=== PATIENT | female | born 1975 | race Caucasian/White ===

== ENCOUNTER 2021-07-19 08:48 | Outpatient (CLI) | payer OTHER, SELFPAY ==
--- NOTE | ~2021-07-19 | NM_ITS ---
EXAMINATION: NM parathyroid imaging w spect DATE: 07/19/2021 13:57 INDICATION: Hypercalcemia TECHNIQUE: 19.2 mCi Tc99m sestamibi (Cardiolite) was administered by intravenous route. Anterior imag es of the neck were obtained at 10 minutes and 2 hours. Additional two-hour delayed SPECT images were also obtained in all 3 planes. COMPARISON: None. FINDINGS/IMPRESSION: There is no focus of persistent activity in the area of the thyroid or mediastinum to suggest parathy roid adenoma. Reviewed, dictated and finalized at location A. CLEANING SUPERVISOR
== END 2021-07-19 08:49 | disposition home or self-care (01) ==
PROVIDERS: PCP Family Medicine; Visit Provider Family Medicine
DX: E83.52 Hypercalcemia (principal)
CPT/HCPCS: 78071; A9500

== ENCOUNTER 2024-01-06 11:18 | Outpatient (CLI) | payer OTHER, SELFPAY ==
--- NOTE | ~2024-01-06 | XR_ITS ---
AP abdomen lateral views of the left hip Clinical history: Pain Findings: No acute fracture or dislocation is seen. Osseous alignment is anatomic. The left hip joint is preserved. Soft tissues are unremarkable. Impression: No significant abnormality is seen. Reviewed, dictated and finalized at location . Impression: No significant abnormality is seen.
--- NOTE | ~2024-01-06 | XR_ITS ---
Left Knee Technique: AP and lateral views were obtained. Clinical History: Pain Findings: No fracture or dislocation is seen. Osseous alignment is anatomic. Joint spaces are preserv ed without degenerative or erosive change. Soft tissues are unremarkable. No joint effusion is seen. Impression: Unremarkable left knee radiographs. Reviewed, dictated and finalized at location . Impression: Unremarkable left knee radiographs.
== END 2024-01-06 11:19 ==
PROVIDERS: PCP Family Medicine; Visit Provider Family Medicine
DX: M25.552 Pain in left hip (principal); M25.562 Pain in left knee
CPT/HCPCS: 73502; 73560

== ENCOUNTER 2025-02-22 10:05 | Outpatient (CLI) | payer OTHER, SELFPAY ==
--- NOTE | ~2025-02-22 | MR_ITS ---
EXAMINATION: MR breast BI wo/w con INDICATION: Extremely dense tissue on mammography. Family history of breast cancer. Patient prior mammogram obtained in March 2024 and ultrasound of the breast both obtained at outside institutions are not available at this time for review. TECHNIQUE: Axial VIBRANT pre and dynamic post contrast, Sagittal VIBRANT post contrast, Axial T2 STIR ASSET COMPARISON: None available CONTRAST: Multihance, 13 cc BREAST COMPOSITION: Extreme fibroglandular tissue FINDINGS: RIGHT BREAST: There is mild background parenchymal enhancement. There is a 0.7 cm linear enhancing mass seen in the slightly superior medial at anterior third which demonstrate low intensity on the T2 weighted image and persistent kinetics. No pathologically enlarged axillary or internal mammary lymph nodes are identified. LEFT BREAST: There is mild background parenchymal enhancement. No abnormal enhancement is present after contrast administration. No pathologically enlarged axillary or internal mammary lymph nodes are identified. IMPRESSION: 1. Right breast 0.7 cm enhancing linear mass at slightly superior medial, 2:00 location. Further evaluation with Second Look ultrasound is advised. 2. No MRI evidence of malignancy within the left breast. 3. The chest wall and axillary portion of the examination unremarkable. RECOMMENDATION: Second Look ultrasound right breast. BI-RADS Category 0: Incomplete: Needs additional imaging evaluation. Reviewed, dictated and finalized at location B.
--- OUTSIDE RECORDS SUMMARY | 2025-02-22 10:36 | XMS_ITS | Clinical Summary ---
Author Organization [facility] Address [address] [place] [address] Care Team Providers Care Heel Sander Rubber Name Role Phone Bhupinder Ferreira MD Unavailable [phone] Ophelia Roman DPT Unavailable [phone] Ale Flores MD Primary Care Provider [phone] Allergies No known active allergies Medications cholecalciferol (Vitamin D3) 2000 unit tablet Active Active Problems No known active problems Encounters Date Type Department Care Team Description 12/22/2024 Telephone [facility] [address] [facility] [address] [place] [address] Ale Flores MD from Last 3 Months Surgical History Surgery Date Site/Laterality Comments SECTION Family History Medical History Relation Name Comments Diabetes Father Gianluca Cancer Maternal Grandfather Herb Breast cancer Mother Shameka Hypertension Mother Shameka Heart attack Paternal Grandfather OCricket Mann Relation Name Status Comments Father Gianluca Maternal Grandfather Herb Mother Shameka Paternal Grandfather Amrik Mann Social History Tobacco Use Types Packs/Day Years Used Date Smoking Tobacco: Never Smokeless Tobacco: Never Tobacco Cessation:Counseling Given: Not Answered Comments No Sex and Gender Information Value Date Recorded Sex Assigned at Not on file Legal Sex Female 8:53 PM PIPE OR STEAM FITTER FURNACE INSTALLER Gender Identity Not on file Sexual Orientation Not on file Obstetrics History Para Term AB IAB SAB Ectopic Multiple Livin g Live Births 2 2 2 2 2 Date Outcome GA Total Labor Labor/2nd/3rd Weight Sex Type Anes PTL Sera A1 A5 Name Clin 2008 Term M C-Secti on Livin g Johnathan 2012 Term F Vaginal Mirian gastelum Last Filed Vital Signs Vital Sign Reading Time Taken Comments Blood Pressure 98/78 11/08/2024 9:17 AM CDT Pulse 65 09/14/2024 6:11 PM CDT Temperature 36.8 C (98.3 F) 02/26/2023 6:08 PM CDT Respiratory Rate 18 09/14/2024 6:11 PM CDT Oxygen Saturation 99% 09/14/2024 6:11 PM CDT Inhaled Oxygen Concentration - - Weight 66.7 kg (147 lb) 11/08/2024 9:17 AM CDT Height 177.8 cm (5' 10) 11/08/2024 9:17 AM CDT Body Mass Index 21.09 11/08/2024 9:17 AM CDT Plan of Treatment Health Maintenance Due Date Last Done Comments Cervical Cancer Screening 1977 Colon Cancer Screening-Colonoscopy 1977 Depression Screening 1977 Hepatitis C Screening 1977 DTaP/Tdap/Td Vaccine (1 - Tdap) 1988 Hepatitis B Screening 1995 Influenza Vaccine (#1) 2025 04/20/2020 Breast Cancer Screening-Mammogram 05/20/2025 05/20/2024, 04/15/2023, 03/07/2022, Additional history exists Regular Well Visit/Exam 18-64 11/08/2025 11/08/2024 Pneumococcal vaccine <65 Aged Out No longer eligible based on patient's age to complete this topic Procedures Procedure Name Priority Date/Time Associated Diagnosis Comments SCREENING MAMMOGRAM BILATERAL W BHARATH Schedule Routine, Read Routine (OP Routine) 05/20/2024 4:10 PM PIPE OR STEAM FITTER FURNACE INSTALLER Screening mammogram, encounter for from Last 3 Months or Most Recently Relevant to Health Maintenance Results * Screening Mammogram Bilateral W Bharath (05/20/2024 4:10 PM PIPE OR STEAM FITTER FURNACE INSTALLER) Anatomical Region Laterality Modality Breast Bilateral Mammography Narrative 05/23/2024 11:39 AM PIPE OR STEAM FITTER FURNACE INSTALLER Mammogram Technique: Bilateral Digital Breast Tomosynthesis, Bilateral C-view 2D Screening mammogram. Views obtained: bilateral craniocaudal and bilateral mediolateral oblique. Computer Aided Detection was performed. Mammogram Findings: The present examination has been compared to prior imaging studies performed at [place], [place] on 12/12/2020, 03/07/2022 and 04/15/2023. The breasts are extremely dense, which lowers the sensitivity of mammography. There is no suspicious abnormality in either breast. Impression: There is no mammographic evidence of malignancy. Annual screening mammography is recommended. Consider breast MRI for supplemental screening given the patient's extremely dense breast tissue. OVERALL FINAL ASSESSMENT: BI-RADS CATEGORY 1: Negative. Procedure Note Lizzette Irby MD - 05/23/2024 Mammogram Technique: Bilateral Digital Breast Tomosynthesis, Bilateral C-view 2D Screening mammogram. Views obtained: bilateral craniocaudal and bilateral mediolateral oblique. Computer Aided Detection was performed. Mammogram Findings: The present examination has been compared to prior imaging studies performed at [facility] [place] [facility], [place], [place] on 12/12/2020, 03/07/2022 and 04/15/2023. The breasts are extremely dense, which lowers the sensitivity of mammography. There is no suspicious abnormality in either breast. Impression: There is no mammographic evidence of malignancy. Annual screening mammography is recommended. Consider breast MRI for supplemental screening given the patient's extremely dense breasttissue. OVERALL FINAL ASSESSMENT: BI-RADS CATEGORY 1: Negative. us Self Screening Mammogram IMG MAMMO PROCEDURES Fi nal Result from Last 3 Months or Most Recently Relevant to Health Maintenance Insurance [facility] CHOICE PLUS CIG CHOICE PLUS CHOICE PLUS Care Teams Heel Sander Rubber Relationship Specialty Start Date End Date Ale Flores MD [address] [facility] [address] [place], [place] [id number] PCP - General Obstetrics and Gynecology 12/05/20 Bhupinder Ferreira MD [address] [facility] [address] [place] [address] Referring Physician Family Medicine 11/19/17 Ophelia Roman DPT [address] [facility] [address] [place], [place] [id number] Physical Therapist Physical Therapy 11/30/17
--- OUTSIDE RECORDS SUMMARY | 2025-02-22 10:36 | XMS_ITS | Clinical Summary ---
Author Organization [facility] Address [address] [address] Phone Care Team Providers Care Centrifugal Chiller Technician Name Role Phone Sofy Patel APRN, CNP Primary Care Provid er Allergies No known active allergies Medications No known medications Active Problems No known active problems Immunizations Immunization Administration Dates Next Due Influenza Vaccine, Quadrivalent, PF 04/20/2020 Typhoid, ViCPs 12/23/2021 Family History Medical History Relation Name Comments Diabetes Father Breast Cancer Mother Cancer Mother High Cholesterol Mother Hypertension Mother Relation Name Status Comments Father Alive Mother Alive Social History Tobacco Use Types Packs/Day Years Used Date Smoking Tobacco: Never Smokeless Tobacco: Never Tobacco Cessation:Counseling Given: Yes Alcohol Use Standard Drinks/Week Comments Yes 0 (1 standard drink = 0.6 oz pur e alcohol) 1-2 drinks a week. PHQ-2 Answer Date Recorded Total Score - Questions 1-9 0 10/28 Sexually Active Control Partners Comments Yes Male Comments Unknown Sex and Gender Information Value Date Recorded Sex Assigned at Not on file Legal Sex Female 7:57 AM ER REGISTRAR Gender Identity Not on file Sexual Orientation Not on file Last Filed Vital Signs Vital Sign Reading Time Taken Comments Blood Pressure 112/62 12/27/2021 7:50 AM CDT Pulse 71 12/27/2021 7:50 AM CDT Temperature 35.7 C (96.2 F) 12/27/2021 7:50 AM CDT Respiratory Rate 12 12/27/2021 7:50 AM CDT Oxygen Saturation 98% 12/27/2021 7:50 AM CDT Inhaled Oxygen Concentration - - Weight 65 kg (143 lb 6.4 oz) 12/27/2021 7:50 AM CDT Height 177.8 cm (5' 10) 12/27/2021 7:50 AM CDT Body Mass Index 20.58 12/27/2021 7:50 AM CDT Plan of Treatment Health Maintenance Due Date Last Done Comments Hepatitis C Virus (HCV) Screening 1977 TdaP Immunization 1977 Hepatitis B Immunization (1 of 3 - 19+ 3-dose series) 1996 Mammogram 11/30/2021 11/30/2020, 09/2020, 08/09/2019, Additional history exists Cologuard 2022 Colonoscopy 2022 Colorectal Cancer Screening 2022 Immunochemical Fecal Occult Blood 2022 Pap Smear 08/09/2022 08/09/2019, 07/30, 04/27/2017, Additional history exists SARS-COV-2 Immunization ( season) 2024 05/24/2021, 10/23/2020, 10/02/2020 Cervical Cancer Screening (CCS) 08/09/2024 HPV/Cotest 08/09/2024 08/09/2019, 03/31, 11/27/2014, Additional history exists Influenza Immunization (#1) 2025 04/20/2020 Respiratory Syncytial Virus (RSV) Immunization (Adult) (1 - 1-dose 75+ series) 2052 Discussion re Starting/Frequency of Mammograms Completed 11/15/2021, 12/12/2020, 11/30/2020, Additional history exists Human Papillomavirus (HPV) Immunization Aged Out No longer eligible based on patient's age to complete this topic Meningococcal Immunization (ACWY) Aged Out No longer eligible based on patient's age to complete this topic Pneumococcal Immunization Combined Aged Out No longer eligible based on patient's age to complete this topic Rotavirus Immunization Aged Out No lo nger eligible based on patient's age to complete this topic Procedures Procedure Name Priority Date/Time Associated Diagnosis Comments MAMMOGRAM UNILATERAL GENERIC 12/12/2020 12:00 AM CDT MAMMOGRAM BILATERAL GENERIC 11/30/2020 12:00 AM CDT HUMAN PAPILLOMA VIRUS (HPV) 08/09/2019 12:00 AM ER REGISTRAR PATHOLOGY CYTOLOGY AXLE TURNER 0 12:00 AM ER REGISTRAR from Last 3 Months or Most Recently Relevant to Health Maintenance Results * MAMMOGRAM UNILATERAL MISCELLANEOUS (12/12/2020 12:00 AM CDT) 12/12/2020 us Not On File Provider IMG MAMMO ORDERABLES Final Result Performing Organization Address [facility] Co de Phone Number SCAN * MAMMOGRAM BILATERAL MISCELLANEOUS (11/30/2020 12:00 AM CDT) 11/30/2020 us Not On File Provider IMG MAMMO ORDERABLES Final Result Performing Organization Address [facility] de Phone Number SCAN * PATHOLOGY CYTOLOGY AXLE TURNER (08/09/2019 12:00 AM ER REGISTRAR) 08/09/2019 us Not On File Provider PATHOLOGY/CYTOLOGY ORDERABL ES Final Result Performing Organization Address [facility] de Phone Number AP NON-INTERFACED REFERENCE LABORATORIES * HUMAN PAPILLOMA VIRUS (HPV) (08/09/2019 12:00 AM ER REGISTRAR) 08/09/2019 us Not On File Provider LAB SEND OUTS Final Resul t Performing Organization Address [facility] de Phone Number AP NON-INTERFACED REFERENCE LABORATORIES from Last 3 Months or Most Recently Relevant to Health Maintenance Insurance [employer] Care Teams Centrifugal Chiller Technician Relationship Specialty Start Date End Date Sofy Patel APRN, CARMINE [address] [address] PCP - General Advanced Practice Nurse 11/15/21
== END 2025-02-22 10:06 | disposition home or self-care (01) ==
PROVIDERS: PCP Family Medicine
DX: R92.8 Other abnormal and inconclusive findings on diagnostic imaging of breast (principal); Z80.3 Family history of malignant neoplasm of breast
CPT/HCPCS: 77049; A9577; C8908

== ENCOUNTER 2025-03-02 09:01 | Outpatient (CLI) | payer OTHER, SELFPAY ==
--- NOTE | ~2025-03-02 | US_ITS ---
Clinical history:Inconclusive breast MRI of the right breast. Right breast 0.7 cm enhancing linear mass at slightly superior medial, 2:00 location. A second look breast ultrasound was recommended. EXAM:Ultrasound breast right limited TECHNIQUE:Multiple static grayscale images were obtained of the right breast at the 2:00 position in the right retroareolar region. Comparisons:Breast MRI 02/22/2025 FINDINGS: No cystic or solid mass or focal fluid collection is identified. IMPRESSION: 1. No sonographic abnormality in the area of concern in the right breast at the 2:00 position. A diagnostic right breast mammogram is recommended. BI-RADS [id number] additional imaging evaluation. Reviewed, dictated and finalized at location Q. IMPRESSION: 1. No sonographic abnormality in the area of concern in the right breast at the 2:00 position. A diagnostic right breast mammogram is recommended. BI-RADS [id number] additional imaging evaluation.
--- OUTSIDE RECORDS SUMMARY | 2025-03-02 09:17 | XMS_ITS | Clinical Summary ---
Author Organization [facility] Address [address] [place] [id number] Care Team Providers Care Wireless Watcher Name Role Phone Unavailable Primary Care Provider Unavailabl e Social History Tobacco Use Types Packs/Day Years Used Date Smoking Tobacco: Never Assessed Comments Unknown Sex and Gender Information Value Date Recorded Sex Assigned at Not on file Legal Sex Female 8:28 PM CDT Gender Identity Not on file Sexual Orientation Not on file Last Filed Vital Signs Vital Sign Reading Time Taken Comments Blood Pressure 118/62 07/02/2016 9:05 AM MANAGER PRINT Pulse 67 07/02/2016 9:05 AM MANAGER PRINT Temperature - - Respiratory Rate - - Oxygen Saturation - - Inhaled Oxygen Concentration - - Weight 69.5 kg (153 lb 2.1 oz) 07/02/2016 9:05 A M MANAGER PRINT Height 177.8 cm (5' 10) 07/02/2016 9:05 AM MANAGER PRINT Body Mass Index 21.97 07/02/2016 9:05 AM MANAGER PRINT Plan of Treatment Health Maintenance Due Date Last Done Comments Cervical Cancer Screening Pa p Smear (Age 30 to 64) Every 3 Years 1977 Colorectal Cancer Screening Colonoscopy (10 Years) 1977 Annual Physical 1980 Hepatitis C 1995 DTaP, Tdap and Td Vaccines ( 1 - Tdap) 1996 Hepatitis B Vaccines (1 of 3 - 19+ 3-dose series) 1996 Cervical Cancer Screening Pa p with HPV Testing (Age 30 to 64) Every 5 Years 2007 Cervical Cancer Screening with HPV 2007 Mammogram Screening 2017 COVID-19 Vaccine (2023-2 5 season) 2025 Meningococcal B Vaccine Aged Out No l onger eligible based on patient's age to complete this topic Meningococcal Vaccine Aged Out No shiva mushtaq eligible based on patient's age to complete this topic Pneumococcal Vaccine: Pediat rics (0 to 5 Years) and At-Risk Patients (6 to 49 Years) Aged Out No longer eligible b ased on patient's age to complete this topic RSV Immunizations Under 20 Months Aged Out No longer eligible based on patient's age to complete this topic
--- OUTSIDE RECORDS SUMMARY | 2025-03-02 09:17 | XMS_ITS | Clinical Summary ---
Author Organization [facility] Address [address] [facility] [place] [address] Care Team Providers Care Well Point Pumping Supervisor Name Role Phone Red Elias Laura DE JESUS-EDITOR MANAGING DIRECTOR Primary Care Provider [phone] Source Comments [facility],non-owned Affiliates and Associated Physician Practices is amultiple site organization consisting of ambulatory clinics and hospital sitesin [place], [place], [place] and [place]. This disclosure is being madepursuant to the Care Everywhere program and may not contain all information available regarding this patient. Last updated 18.[employer] [facility]Exactly [facility] Allergies No known active allergies Medications * Be aware that medications may not be up to date on this document. Alwaysverify current medications with the patient. benzonatate (TESSALON) 200 MG capsule Take 1 Cap by mouth 3 times daily as needed for Cough 30 Cap 06/05/2016 Active Family History Relation Name Status Comments Father Alive Mother Alive Social History Tobacco Use Types Packs/Day Years Used Date Smoking Tobacco: Never Comments Unknown Sex and Gender Information Value Date Recorded Sex Assigned at Not on file Legal Sex Female 10:13 AM DYE EXPERT Gender Identity Not on file Sexual Orientation Not on file Last Filed Vital Signs Vital Sign Reading Time Taken Comments Blood Pressure 98/60 06/05/2016 4:14 PM DYE EXPERT Pulse 86 06/05/2016 4:14 PM DYE EXPERT Temperature 37.7 C (99.9 F) 06/05/2016 4:14 PM DYE EXPERT Respiratory Rate 16 06/05/2016 4:14 PM DYE EXPERT Oxygen Saturation 96% 06/05/2016 4:14 PM DYE EXPERT Inhaled Oxygen Concentration - - Weight 68 kg (150 lb) 06/05/2016 4:14 PM DYE EXPERT Height 177.8 cm (5' 10) 06/05/2016 4:14 PM DYE EXPERT Body Mass Index 21.52 06/05/2016 4:14 PM DYE EXPERT Plan of Treatment Health Maintenance Due Date Last Done Comments COLOGUARD (AGES 45-75) - COL ON CA SCREENING 1977 COLON MONITORING 1977 COLONOSCOPY - COLON CA SCREENING 1977 CT COLONOGRAPHY - COLON CA SCREENING 1977 Colorectal Cancer Screening 1977 FIT - COLON CA SCREENING 1977 FLEX SIG - COLON CA SCREENING 1977 LIPID TESTING 1977 MAMMOGRAM 1977 HIV SCREENING 1992 HEPATITIS C SCREENING 03/15/1995 DTAP/TDAP/TD VACCINES (1 - Tdap) 1996 HEPATITIS B VACCINE (1 of 3 - 19+ 3-dose series) 1996 PAP SMEAR 1998 DEPRESSION SCREENING 06/29/2024 COVID-19 VACCINE (1 - 2023-2 5 season) 2025 INFLUENZA VACCINE (#1) 2025 ZOSTER VACCINE (1 of 2) 2027 HIB VACCINE Aged Out No longer eligi ble based on patient's age to complete this topic HPV VACCINE Aged Out No longer eligi ble based on patient's age to complete this topic MENINGOCOCCAL (Group B) VACC INE SHARED DECISION-MAKING Aged Out No longer eligibl e based on patient's age to complete this topic MENINGOCOCCAL GROUPS A/C/Y/W VACCINE Aged Out No longer eligible b ased on patient's age to complete this topic PNEUMOCOCCAL VACCINE Aged Out No long er eligible based on patient's age to complete this topic Insurance [facility] Care Teams Well Point Pumping Supervisor Relationship Specialty Start Date End Date Red Elias APRN-EDITOR MANAGING DIRECTOR PCP - General Nurse Practitioner 06/05/16
--- OUTSIDE RECORDS SUMMARY | 2025-03-02 09:17 | XMS_ITS | Encounter Summary ---
Author Organization [facility] Address [facility] [place] [address] Care Team Providers Care Retort Fireman Name Role Phone Curt Red Sanchez APRN-TRAUMA COORDINATOR Primary Care Provider [phone] Reason for Visit * Reason Onset Date Comments Appointment 08/17/2024 Encounter Details Date Type Department Care Team (Late st Contact Info) Description 08/17/2024 Telephone [facility] - Internal Medicine [address] [place] [address] Timothy Patricia, MELLISA-TRAUMA COORDINATOR [address] [place] [address] Appointment Social History Tobacco Use Types Packs/Day Years Used Date Smoking Tobacco: Never Comments Unknown Sex and Gender Information Value Date Recorded Sex Assigned at Not on file Legal Sex Female 10:13 AM CASE RESOURCE MANAGER Gender Identity Not on file Sexual Orientation Not on file documented as of this encounter Miscellaneous Notes * Telephone Encounter - Ezequiel Vasquez - 08/17/2024 1:44 PM CST Fariba (legal guardian for Lilia) was told that Timothy would be a great fit for Lilia Mayes, who is currently considering transitioning. Would Timothy consider taking Lilia as a newpatient. Please advise, call Fariba for clarification, she does still retain legal guardianship. RESOURCE MANAGER documented in this encounter Plan of Treatment Not on file documented as of this encounter Visit Diagnoses Not on filedocumented in this encounter Care Teams Retort Fireman Relationship Specialty Start Date End Date Red Elias, SITE SPECIALIST-TRAUMA COORDINATOR PCP - General Nurse Practitioner 06/05/16 documented as of this encounter
--- OUTSIDE RECORDS SUMMARY | 2025-03-02 09:17 | XMS_ITS | Clinical Summary ---
Author Organization [facility] Address [address] [address] Phone Care Team Providers Care Manager Science Name Role Phone Sofy Patel APRN, CNP [...] on file Legal Sex Female 7:57 AM SUPERVISOR WHIPPED TOPPING Gender Identity Not on file Sexual Orientation [...] 19+ 3-dose series) 1996 Mammogram 11/30/2021 11/30/2020, 0 09/2020, 08/09/2019, Additional history exists Cologuard 2022 Colonoscopy 2022 Colorectal Cancer Screening 2022 Immunochemical Fecal Occult Blood 2022 Pap Smear 08/09/2022 08/09/2019, 07/30, 04/27/2017, Additional history exists Cervical Cancer Screening (CCS) 08/09/2024 HPV/Cotest 08/09/2024 08/09/2019, 03/31, 11/27/2014, Additional history exists Influenza Immunization (#1) 2025 04/20/2020 SARS-COV-2 Immunization ( season) 2025 05/24/2021, 10/23/2020, 10/02/2020 Respiratory Syncytial Virus (RSV) Immunization (Adult) (1 [...] HUMAN PAPILLOMA VIRUS (HPV) 08/09/2019 12:00 AM SUPERVISOR WHIPPED TOPPING PATHOLOGY CYTOLOGY HAMMER REPAIRER 0 12:00 AM SUPERVISOR WHIPPED TOPPING from Last 3 Months or Most Recently Relevant to Health Maintenance Results * MAMMOGRAM UNILATERAL MISCELLANEOUS (12/12/2020 12:00 AM CDT) 12/12/2020 us Not On File Provider IMG MAMMO ORDERABLES Final Result Performing Organization Address [facility] Co de Phone Number SCAN * MAMMOGRAM BILATERAL MISCELLANEOUS (11/30/2020 12:00 AM CDT) 11/30/2020 us Not On File Provider IMG MAMMO ORDERABLES Final Result Performing Organization Address [facility] de Phone Number SCAN * PATHOLOGY CYTOLOGY HAMMER REPAIRER (08/09/2019 12:00 AM SUPERVISOR WHIPPED TOPPING) 08/09/2019 us Not On File Provider PATHOLOGY/CYTOLOGY ORDERABL ES Final Result Performing Organization Address [facility] de Phone Number AP NON-INTERFACED REFERENCE LABORATORIES * HUMAN PAPILLOMA VIRUS (HPV) (08/09/2019 12:00 AM SUPERVISOR WHIPPED TOPPING) 08/09/2019 us Not On File Provider LAB SEND OUTS Final Resul t Performing Organization Address [facility] de Phone Number AP NON-INTERFACED REFERENCE LABORATORIES from Last 3 Months or Most Recently Relevant to Health Maintenance Insurance [employer] Care Teams Manager Science Relationship Specialty Start Date End Date Sofy Patel APRN, CARMINE [address] [address] PCP - General Advanced Practice Nurse 11/15/21
--- OUTSIDE RECORDS SUMMARY | 2025-03-02 09:17 | XMS_ITS | Clinical Summary ---
Author Organization [facility] Address [address] [place] [address] Care Team Providers Care Vehicle Modification Technician Name Role Phone Bhupinder Ferreira MD Unavailable [phone] Ophelia Roman DPT Unavailable [phone] Ale Flores MD Primary Care Provider [phone] Allergies No known active allergies Medications cholecalciferol (Vitamin D3) 2000 unit tablet Active Active Problems No known active problems Encounters Date Type Department Care Team Description 02/23/2025 Telephone [facility] [address] [facility] [address] [place] [address] Melissa Dodd, RN Breast MRI 12/22/2024 Telephone [facility] [address] [facility] [address] [place] [address] Ale Flores MD from Last 3 Months Surgical History Surgery Date Site/Laterality Comments SECTION Family History Medical History Relation Name Comments Diabetes Father Gianluca Cancer Maternal Grandfather Herb Breast cancer Mother Shameka Hypertension Mother Shameka Heart attack Paternal Grandfather Amrik Mann Relation Name Status Comments Father Gianluca Maternal Grandfather Herb Mother Shameka Paternal Grandfather Amrik Mann Social History Tobacco Use Types Packs/Day Years Used Date Smoking Tobacco: Never Smokeless Tobacco: Never Tobacco Cessation:Counseling Given: Not Answered Comments No Sex and Gender Information Value Date Recorded Sex Assigned at Not on file Legal Sex Female 8:53 PM DEER FARMER Gender Identity Not on file Sexual Orientation Not on file Obstetrics History Para Term AB IAB SAB Ectopic Multiple Livin g Live Births 2 2 2 2 2 Date Outcome GA Total Labor Labor/2nd/3rd Weight Sex Type Anes PTL Sera A1 A5 Name Clin 2007 Term M C-Secti on Livin dolly Mann 2012 Term F Vaginal Livin g Cathsteven gastelum Last Filed Vital Signs Vital Sign [...] Read Routine (OP Routine) 05/20/2024 4:10 PM DEER FARMER Screening mammogram, encounter for from Last 3 Months or Most Recently Relevant to Health Maintenance Results * Screening Mammogram Bilateral W Bharath (05/20/2024 4:10 PM DEER FARMER) Anatomical Region Laterality Modality Breast Bilateral Mammography Narrative 05/23/2024 11:39 AM DEER FARMER Mammogram Technique: Bilateral Digital Breast Tomosynthesis, Bilateral C-view 2D Screening mammogram. Views obtained: bilateral craniocaudal and bilateral mediolateral oblique. Computer Aided Detection was performed. Mammogram Findings: The present examination has been compared to prior imaging studies performed at [place], [place] on 12/12/2020, 03/07/2022 and 04/15/2023. The [...] compared to prior imaging studies performed at [facility], [place], [place] on 12/12/2020, 03/07/2022 and 04/15/2023. The [...] Most Recently Relevant to Health Maintenance Insurance [facility] [employer] PL[employer] CHOICE PLUS CHOICE PLUS Care Teams Vehicle Modification Technician Relationship Specialty Start Date End Date Ale Flores MD [address] [facility] [address] [place] [address] PCP - General Obstetrics and Gynecology 12/05/20 Bhupinder Ferreira MD [address] [place] [address] Referring Physician Family Medicine 11/19/17 Ophelia Roman DPT [address] [facility] [address] [place] [address] Physical Therapist Physical Therapy 11/30/17
== END 2025-03-02 09:02 | disposition home or self-care (01) ==
PROVIDERS: PCP Family Medicine
DX: R92.343 Mammographic extreme density, bilateral breasts (principal); Z80.3 Family history of malignant neoplasm of breast; R92.8 Other abnormal and inconclusive findings on diagnostic imaging of breast
CPT/HCPCS: 76642

== ENCOUNTER 2025-03-20 10:26 | Outpatient (CLI) | payer OTHER, SELFPAY ==
--- NOTE | ~2025-03-20 | MM_ITS ---
EXAMINATION: MM diagnostic guru RT w cierra INDICATION: 50-year old female; follow-up diagnostic mammogram on an MRI finding that showed linear nonmass enhancement at 2:00 location anterior depth within the right breast with no sonographic correlate. Patient has a strong family history of breast cancer with mother with breast cancer. COMPARISON: MRI 02/22/2025. TECHNIQUE: Digital breast imaging CC and ML views of RIGHT breast were obtained. FINDINGS: The breasts are heterogeneously dense, which may obscure small masses. No suspicious mammographic abnormality is seen in superior medial RIGHT breast in the area of concern. No dominant mass, area of architectural distortion or suspicious calcifications in the rest of the breasts. IMPRESSION: Suspicious RIGHT breast linear nonmass enhancement seen on MRI study in the 2:00 location. Biopsy is recommended. RECOMMENDATION: MRI guided biopsy of 2:00 RIGHT breast lesion. BI-RADS 4, SUSPICIOUS Reviewed, dictated and finalized at location C. IMPRESSION: Suspicious RIGHT breast linear nonmass enhancement seen on MRI stud y in the 2:00 location. Biopsy is recommended. RECOMMENDATION: MRI guided biopsy of 2:00 RIGHT breast lesion. BI-RADS 4, SUSPICIOUS
--- OUTSIDE RECORDS SUMMARY | 2025-03-20 11:36 | XMS_ITS | Clinical Summary ---
Author Organization [facility] Address [address] [address] Phone Care Team Providers Care Fast Food Fry Cook Name Role Phone Sofy Patel APRN, CNP [...] on file Legal Sex Female 7:57 AM COAL MILL OPERATOR Gender Identity Not on file Sexual Orientation [...] HUMAN PAPILLOMA VIRUS (HPV) 08/09/2019 12:00 AM COAL MILL OPERATOR PATHOLOGY CYTOLOGY ADULT FAMILY HOME PROGRAM MANAGER 0 12:00 AM COAL MILL OPERATOR from Last 3 Months or Most Recently Relevant to Health Maintenance Results * MAMMOGRAM UNILATERAL MISCELLANEOUS (12/12/2020 12:00 AM CDT) 12/12/2020 us Not On File Provider IMG MAMMO ORDERABLES Final Result Performing Organization Address [facility] [[email or web address]] Co de Phone Number SCAN * MAMMOGRAM BILATERAL MISCELLANEOUS (11/30/2020 12:00 AM CDT) 11/30/2020 us Not On File Provider IMG MAMMO ORDERABLES Final Result Performing Organization Address [facility] de Phone Number SCAN * PATHOLOGY CYTOLOGY ADULT FAMILY HOME PROGRAM MANAGER (08/09/2019 12:00 AM COAL MILL OPERATOR) 08/09/2019 us Not On File Provider PATHOLOGY/CYTOLOGY ORDERABL ES Final Result Performing Organization Address [facility] de Phone Number AP NON-INTERFACED REFER[facility] LAB[facility]IES * HUMAN PAPILLOMA VIRUS (HPV) (08/09/2019 12:00 AM COAL MILL OPERATOR) 08/09/2019 us Not On File Provider LAB SEND OUTS Final Resul t Performing Organization Address [facility] de Phone Number AP NON-INTERFACED [facility]ATORIES from Last 3 Months or Most Recently Relevant to Health Maintenance Insurance [employer] Care Teams Fast Food Fry Cook Relationship Specialty Start Date End Date Sofy Patel APRN, CARMINE [address] [address] PCP - General Advanced Practice Nurse 11/15/21
--- OUTSIDE RECORDS SUMMARY | 2025-03-20 11:36 | XMS_ITS | Clinical Summary ---
Author Organization [facility] Address [address] [place] [address] Care Team Providers Care Sizing Machine Tender Name Role Phone Unavailable Primary Care Provider [...] Comments Blood Pressure 118/62 07/02/2016 9:05 AM MANUFACTURING ENGINEER SUPERVISOR Pulse 67 07/02/2016 9:05 AM MANUFACTURING ENGINEER SUPERVISOR Temperature - - Respiratory Rate - - Oxygen Saturation - - Inhaled Oxygen Concentration - - Weight 69.5 kg (153 lb 2.1 oz) 07/02/2016 9:05 A M MANUFACTURING ENGINEER SUPERVISOR Height 177.8 cm (5' 10) 07/02/2016 9:05 AM MANUFACTURING ENGINEER SUPERVISOR Body Mass Index 21.97 07/02/2016 9:05 AM MANUFACTURING ENGINEER SUPERVISOR Plan of Treatment Health Maintenance Due Date [...]
--- OUTSIDE RECORDS SUMMARY | 2025-03-20 11:36 | XMS_ITS | Clinical Summary ---
Author Organization [facility] Address [address] [place] [address] Care Team Providers Care Medical Service Representative Name Role Phone Bhupinder Ferreira MD Unavailable [phone] Ophelia Roman DPT Unavailable [phone] Ale Flores MD Primary Care Provider [phone] Allergies No known active allergies Medications cholecalciferol (Vitamin D3) 2000 unit tablet Active Active Problems No known active problems Encounters Date Type Department Care Team Description 03/16/2025 [facility] Breast Risk Eligibility [facility] [address] [place] [address] Kathy Arzola 03/03/2025 Telephone [facility] [facility] [address] [place] [address] Tatiana Pradhan RN Request For Order(s) 02/23/2025 Telephone [facility] [facility] [address] [place] [address] Melissa Dodd RN Breast MRI 12/22/2024 Telephone [facility] [facility] [address] [place] [address] Ale Flores MD from Last 3 Months Surgical History Surgery Date Site/Laterality Comments SECTION Family History Medical History Relation Name Comments Diabetes Father Gianluca Cancer Maternal Grandfather Herb Breast cancer Mother Shameka Hypertension Mother Shameka Heart attack Paternal Grandfather Amrik Mann Relation Name Status Comments Father Gianluca Maternal Grandfather Catarino Mother Shameka Paternal Grandfather Amrik Mann Social History Tobacco Use Types Packs/Day Years Used Date Smoking Tobacco: Never Smokeless Tobacco: Never Tobacco Cessation:Counseling Given: Not Answered Comments No Sex and Gender Information Value Date Recorded Sex Assigned at Not on file Legal Sex Female 8:53 PM WEB DEVELOPMENT CONSULTANT Gender Identity Not on file Sexual Orientation Not on file Obstetrics History Para Term AB IAB SAB Ectopic Multiple Livin g Live Births 2 2 2 2 2 Date Outcome GA Total Labor Labor/2nd/3rd Weight Sex Type Anes PTL Sera A1 A5 Name Clin 2007 Term M C-Secti on Mirian Mann 2012 Term F Vaginal Livin g Cather oriana Last Filed Vital Signs Vital Sign Reading [...] Read Routine (OP Routine) 05/20/2024 4:10 PM WEB DEVELOPMENT CONSULTANT Screening mammogram, encounter for from Last 3 Months or Most Recently Relevant to Health Maintenance Results * Screening Mammogram Bilateral W Bharath (05/20/2024 4:10 PM WEB DEVELOPMENT CONSULTANT) Anatomical Region Laterality Modality Breast Bilateral Mammography Narrative 05/23/2024 11:39 AM WEB DEVELOPMENT CONSULTANT Mammogram Technique: Bilateral Digital Breast Tomosynthesis, Bilateral C-view 2D Screening mammogram. Views obtained: bilateral craniocaudal and bilateral mediolateral oblique. Computer Aided Detection was performed. Mammogram Findings: The present examination has been compared to prior imaging studies performed at [place], [place] on 12/12/2020, 03/07/2022 and 04/15/2023. The [...] compared to prior imaging studies performed at [place], [place] on 12/12/2020, 03/07/2022 and 04/15/2023. The [...] Most Recently Relevant to Health Maintenance Insurance [id number] CHOICE PLUS [facility] HMO/PPO Address: [facility] [address] [place] [address] CHOICE PLUS [facility] HMO/PPO Address: [address] [address] [place] [address] [facility] CHOICE PLUS [facility] HMO/PPO Address: [address] [place] [address] Care Teams Medical Service Representative Relationship Specialty Start Date End Date Ale Flores MD [address] [address] PCP - General Obstetrics and Gynecology 12/05/20 Bhupinder Ferreira MD [address] [facility] [address] [place] [address] Referring Physician Family Medicine 11/19/17 Ophelia Roman DPT [address] [place] [address] Physical Therapist Physical Therapy 11/30/17
--- OUTSIDE RECORDS SUMMARY | 2025-03-20 11:36 | XMS_ITS | Clinical Summary ---
Author Organization [facility] Address [address] [facility] [place] [address] Care Team Providers Care Women'S Basketball Coach Name Role Phone Red Elias Laura [employer]OL Primary Care Provider [phone] Source Comments [facility],non-owned Affiliates and Associated Physician Practices is amultiple site organization consisting of ambulatory clinics and hospital sitesin [place], [place], [place] and [place]. This disclosure is being madepursuant to the Care Everywhere program and may not contain all information available regarding this patient. Last updated [employer] [facility] Allergies No known active allergies Medications * [...] on file Legal Sex Female 10:13 AM CUSTOMER SUCCESS MANAGER Gender Identity Not on file Sexual Orientation Not on file Last Filed Vital Signs Vital Sign Reading Time Taken Comments Blood Pressure 98/60 06/05/2016 4:14 PM CUSTOMER SUCCESS MANAGER Pulse 86 06/05/2016 4:14 PM CUSTOMER SUCCESS MANAGER Temperature 37.7 C (99.9 F) 06/05/2016 4:14 PM CUSTOMER SUCCESS MANAGER Respiratory Rate 16 06/05/2016 4:14 PM CUSTOMER SUCCESS MANAGER Oxygen Saturation 96% 06/05/2016 4:14 PM CUSTOMER SUCCESS MANAGER Inhaled Oxygen Concentration - - Weight 68 kg (150 lb) 06/05/2016 4:14 PM CUSTOMER SUCCESS MANAGER Height 177.8 cm (5' 10) 06/05/2016 4:14 PM CUSTOMER SUCCESS MANAGER Body Mass Index 21.52 06/05/2016 4:14 PM CUSTOMER SUCCESS MANAGER Plan of Treatment Health Maintenance Due Date [...] age to complete this topic Insurance [employer] Care Teams Women'S Basketball Coach Relationship Specialty Start Date End Date Red Elias APRN-MANAGER SCHOOL PCP - General Nurse Practitioner 06/05/16
--- OUTSIDE RECORDS SUMMARY | 2025-03-20 11:36 | XMS_ITS | Encounter Summary ---
Author Organization [facility] Address [facility] [facility] [place] [address] Care Team Providers Care Correctional Case Records Supervisor Name Role Phone Curt Red Sanchez APRN-LINSEED OIL ORDER FILLER Primary Care Provider [phone] Reason for Visit * Reason Onset Date Comments Appointment 08/17/2024 Encounter Details Date Type Department Care Team (Late st Contact Info) Description 08/17/2024 Telephone [facility] - Internal Medicine [address] [place] [address] Timothy Patricia, MELLISA-LINSEED OIL ORDER FILLER [address] [place] [address] Appointment Social History Tobacco Use Types Packs/Day Years Used Date Smoking Tobacco: Never Comments Unknown Sex and Gender Information Value Date Recorded Sex Assigned at Not on file Legal Sex Female 10:13 AM GAS APPLIANCE SERVICER Gender Identity Not on file Sexual Orientation [...] clarification, she does still retain legal guardianship. APPLIANCE SERVICER documented in this encounter Plan of Treatment Not on file documented as of this encounter Visit Diagnoses Not on filedocumented in this encounter Care Teams Correctional Case Records Supervisor Relationship Specialty Start Date End Date Red Elias, MEAT SMOKER-LINSEED OIL ORDER FILLER PCP - General Nurse Practitioner 06/05/16 documented as of this encounter
== END 2025-03-20 10:27 | disposition home or self-care (01) ==
LOC: CHSIMG 10:28
PROVIDERS: PCP Family Medicine
DX: N63.10 Unspecified lump in the right breast, unspecified quadrant (principal); R92.8 Other abnormal and inconclusive findings on diagnostic imaging of breast
CPT/HCPCS: 77061; 77065; G0279